=== PATIENT | male | born 1945 | race Caucasian/White ===

== ENCOUNTER → 2016-08-18 | Day surgery (SDC) | payer MEDICARE, BC ==
[~2016-08-18] MED LIST: AMLODIPINE BESY10 MG PO; ASPIRIN EC81 M1 PO; AVODART0.5 MG PO; CHLORTHALIDONE25 M1; FLOMAX0.4 M1 DOB; LIPITOR20 MG PO; LOTENSIN20 MG PO; METFORMIN HCL1000 M1 PO; TRADJENTA5 MG PO; VICTOZA0.6 MG/0.1 SQ
--- NOTE | ~2016-08-18 | OR ---
Unit #: [id number] #: [id number] Patient: ADELA JIMÉNEZ JR [id number] [address] [id number] O MR#: [id number] NAME: ADELA JIMÉNEZ JR ROOM: Date of Procedure: 08/18/2016 Admission Date: 08/18/2016 Surgeon: Rafael Gilmore M.D. : 1945 Attending Physician: Rafael Gilmore M.D. Primary Care Physician: Elena Fam M.D. OPERATIVE REPORT PROCEDURE PERFORMED Colonoscopy to cecum. INDICATIONS FOR PROCEDURE Average risk for colorectal cancer. MEDICATIONS Monitored anesthesia. POSTOPERATIVE FINDINGS Normal exam. No polyps, masses, or colitis. Prep was good. PLAN Repeat colonoscopy in 10 years. DESCRIPTION OF PROCEDURE The patient was explained of the procedure, risks, and benefits along with risks and benefits of anesthesia. He was brought to the endoscopy room. Propofol anesthesia was given. Rectal exam was done, which was normal. Colonoscope was lubricated, passed up the rectum, advanced under direct vision all the way to the cecum. Cecum was identified by ileocecal valve and appendiceal orifice. I then started to pull the scope out carefully looking. No polyps, masses, or colitis was seen. I retroflexed in the rectum, small hemorrhoids seen. Scope was gently pulled out. He tolerated it well. Dictated by... Tiffani Dodd/ramya TD: 08/18/2016 21:44 JOB #: [id number] Unit #: [id number] #: [id number] Patient: ADELA JIMÉNEZ JR OPERATIVE REPORT X Rafael Gilmore MD PROCEDURE OPERATIVE NOTE
== END | disposition home or self-care (01) ==
LOC: COPS 10:42
DX: Z12.11 Encounter for screening for malignant neoplasm of colon (principal); K64.9 Unspecified hemorrhoids; I10 Essential (primary) hypertension; E11.9 Type 2 diabetes mellitus without complications; M19.90 Unspecified osteoarthritis, unspecified site; N40.0 Benign prostatic hyperplasia without lower urinary tract symptoms; Z79.82 Long term (current) use of aspirin; Z79.899 Other long term (current) drug therapy; Z98.890 Other specified postprocedural states
CPT/HCPCS: 82947

== ENCOUNTER → 2016-11-07 | Outpatient (CLI) | payer MEDICARE, BC ==
--- NOTE | ~2016-11-07 | EKG ---
PATIENT: ADELA JIMÉNEZ UNIT #: [id number] Ventricular Rate: 89 BPM Atrial Rate: 89 BPM P-R Interval: 150 ms QRS Duration: 142 ms Q-T Interval: 380 ms QTC Calculation(Bezet): 462 ms P Smithmill: 45 degrees Calculated R Smithmill: 17 degrees Calculated T Smithmill: 18 degrees Diagnosis Line: Normal sinus rhythm Diagnosis Line: Right bundle branch block Diagnosis Line: T wave abnormality, consider lateral ischemia Diagnosis Line: Abnormal ECG Diagnosis Line: When compared with ECG of 06-MAY-2015 15:36, Diagnosis Line: No significant change was found Diagnosis Line: Confirmed by ALESSANDRO SHIELDS MD ([id number]) on Diagnosis Line: 11/08/2016 8:47:59 AM INTERPRETING MD: CORNELIUS SUÁREZ
== END | disposition home or self-care (01) ==
LOC: CEKG 12:17
DX: R00.2 Palpitations (principal)
CPT/HCPCS: 93005